=== PATIENT | male | born 1970 | race Caucasian/White ===

== ENCOUNTER 2018-04-23 11:16 | Emergency (ER) | payer OTHER ==
[2018-04-23] MEDS: ONDANSETRON HCL IV 4 MG/2 ML VIAL IV ONE (11:43)
[2018-04-23] MEDS: MAGNESIUM HYDROXIDE/AL HYDROX 30 ML, LIDOCAINE VISC 2% 200 MG PO ONE ×2 (11:43)
--- NOTE | 2018-04-23 11:43 | Emergency Department Record ---
History of Present Illness - General Chief Complaint: Abdominal Pain Stated Complaint: ABD PAIN Time Seen by Provider: 04/23/18 11:22 Source: Patient, RN notes reviewed Mode of Arrival: Wheelchair - History of Present Illness Initial Comments: epigastric abd pain and all four quad pain on palpation more on the LUQ area and No Past abdominal sugery. He was seen at [facility] with acute abdominal xray showed constipation. Onset/Timin -: Days(s) Location: Diffuse Severity: Moderate Severity scale (1-10): 8 Quality: Cramping Consistency: Constant Improves With: Nothing Worsens With: Nothing Associated Symptoms: Nausea - Related Data Allergies Allergy/AdvReac Type Severity Reaction Status Date / Time No Known Allergies Allergy PT UNSURE Verified 04/23/18 11:20 OF REACTION Travel Screening - Travel/Exposure Within Last 30 Days Have you traveled within the last 30 days?: No - Travel/Exposure Within Last Year Have you traveled outside the [place] in the last year?: No - Additonal Travel Details Have you been exposed to anyone with a communicable illness?: No - Travel Symptoms Symptom Screening: None Review of Systems Reviewed: No additional complaints except as noted below Constitutional: Reports: As per HPI. Denies: Chills, Fever, Malaise, Night sweats, Weakness, Weight change Eyes: Reports: As per HPI. Denies: Eye discharge, Eye pain, Photophobia, Vision change ENT: Reports: As per HPI. Denies: Congestion, Dental pain, Ear pain, Epistaxis , Hearing loss, Throat pain Respiratory: Reports: As per HPI. Denies: Cough, Dyspnea, Hemoptysis, Stridor, Wheezes Cardiovascular: Reports: As per HPI. Denies: Arrhythmia, Chest pain, Dyspnea on exertion, Edema, Murmurs, Orthopnea, Palpitations, Paroxysmal nocturnal dyspnea, Rheumatic Fever, Syncope Endocrine: Reports: As per HPI. Denies: Fatigue, Heat or cold intolerance, Polydipsia, Polyuria Gastrointestinal: Reports: As per HPI, Abdominal pain, Vomiting. Denies: Constipation, Diarrhea, Hematemesis, Hematochezia, Melena, Nausea Genitourinary: Reports: As per HPI. Denies: Dysuria, Frequency, Hematuria, Incontinence, Retention, Testicular pain, Testicular mass, Urgency Musculoskeletal: Reports: As per HPI. Denies: Arthralgia, Back pain, Gout, Joint swelling, Myalgia, Neck pain Skin: Reports: As per HPI. Denies: Bruising, Change in color, Change in hair/ nails, Lesions, Pruritus, Rash Neurological: Reports: As per HPI. Denies: Abnormal gait, Confusion, Headache, Numbness, Paresthesias, Seizure, Tingling, Tremors, Vertigo, Weakness Psychiatric: Reports: As per HPI. Denies: Anxiety, Auditory hallucinations, Depression, Homicidal thoughts, Suicidal thoughts, Visual hallucinations Hematological/Lymphatic: Reports: As per HPI. Denies: Anemia, Blood Clots, Easy bleeding, Easy bruising, Swollen glands Past Medical History - SOCIAL HISTORY Smoking Status: Never smoker Alcohol Use: Occasional Drug Use: None - RESPIRATORY Hx Respiratory Disorders: No - CARDIOVASCULAR Hx Cardio Disorders: No - NEURO Hx Neuro Disorders: No - GI Hx GI Disorders: No - Hx Genitourinary Disorders: No - ENDOCRINE Hx Endocrine Disorders: No - MUSCULOSKELETAL Hx Musculoskeletal Disorders: Yes - PSYCH Hx Psych Problems: No - HEMATOLOGY/ONCOLOGY Hx Hematology/Oncology Disorders: No Family Medical History Any Significant Family History?: No Physical Exam - General General Appearance: Alert, Oriented x3, Cooperative, Moderate distress - Head Head exam: Normal inspection - Eye Eye exam: Normal appearance, PERRL Pupils: Normal accommodation - ENT ENT exam: Normal exam, Mucous membranes moist, Normal external ear exam, Normal orophraynx, TM's normal bilaterally Ear exam: Normal external inspection. negative: External canal tenderness Nasal Exam: Normal inspection. negative: Discharge, Sinus tenderness Mouth exam: Normal external inspection, Tongue normal Teeth exam: Normal inspection. negative: Dental caries Throat exam: Normal inspection. negative: Tonsillar erythema, Tonsillar exudate - Neck Neck exam: Normal inspection, Full ROM. negative: Tenderness - Respiratory Respiratory exam: Normal lung sounds bilaterally. negative: Respiratory distress - Cardiovascular Cardiovascular Exam: Regular rate, Normal rhythm, Normal heart sounds - GI/Abdominal GI/Abdominal exam: Soft, Normal bowel sounds, Guarding, Tenderness (epigastric and LUQ pain and guarding in all four quads,) - Rectal Rectal exam: Deferred - exam: Deferred - Extremities Extremities exam: Normal inspection, Full ROM, Normal capillary refill. negative: Tenderness - Back Back exam: Reports: Normal inspection, Full ROM. Denies: Muscle spasm, Rash noted, Tenderness - Neurological Neurological exam: Alert, Normal gait, Oriented X3, Reflexes normal - Psychiatric Psychiatric exam: Normal affect, Normal mood - Skin Skin exam: Dry, Intact, Normal color, Warm Course Vital Signs 04/23/18 11:22 Temperature 98 F Pulse Rate 89 Respiratory 20 Rate Blood Pressure 115/70 Pulse Ox 98 - Reevaluation(s) Reevaluation #1: discussed case with Dr Mills and will transfer to [facility]. 04/23/18 13:08 Reevaluation #2: reevaluated abd and pain is localized to the right lower quad with guarding and rebound 04/23/18 13:13 Medical Decision Making - Data Complexity MDM Data: Labs Ordered and/or Reviewed (WBC 20,000,), X-Ray Ordered and/or Reviewed (acute appendicitis and appendic 13 mm) Disposition Clinical Impression: Abdominal pain Qualifiers: Abdominal location: generalized Qualified Code(s): R10.84 - Generalized abdominal pain Acute appendicitis Qualifiers: Acute appendicitis type: unspecified acute appendicitis type Qualified Code(s) : K35.80 - Unspecified acute appendicitis Disposition: Acute Care Hospital Transfer Condition: (1) Good Forms: Patient Portal Access Time of Disposition: 13:09 Quality - Quality Measures Quality Measures: N/A - Blood Pressure Screening Does Patient Have Any of the Following: No Blood Pressure Classification: Normal BP Reading Systolic Measurement: 115 Diastolic Measurement: 70 Screening for High Blood Pressure: < Normal BP, F/U Not Required > [G8783]
[2018-04-23] MEDS: 0.9 % SODIUM CHLORIDE 1,000 ML BAG IV ONE (11:44)
[2018-04-23] MEDS: HYDROMORPHONE HCL 2 MG/ML VIAL IVP ONE (11:44)
[2018-04-23] MEDS: ERTAPENEM SODIUM 1 G in 0.9 % SODIUM CHLORIDE 100ML 100 ML IVPB ONE (13:18)
--- NOTE | 2018-04-25 08:01 | CT SCAN REPORT ---
EXAM: CT OF THE ABDOMEN AND PELVIS WITHOUT CONTRAST HISTORY: ABDOMINAL PAIN. TECHNIQUE: Sequential axial images were obtained from the diaphragms through the ischiorectal fossa without intravenous or oral contrast administration. FINDINGS: The visualized lung bases appear normal. The nonopacified liver, gallbladder, pancreas and spleen appear normal. The adrenal glands and kidneys appear normal. The urinary bladder appears normal. The appendix is distended with appendicolith. The appendix measures 13 mm. There is minimal surrounding inflammatory change. The small bowel appears normal. There is mild colonic diverticulosis. No evidence of diverticulitis. There are fat containing inguinal hernias. The osseous structures are normal. IMPRESSION: 1. DISTENDED APPENDIX WITH APPENDICOLITH MEASURING 13 MM. FINDINGS SUGGESTIVE OF ACUTE APPENDICITIS. 2. SMALL SLIDING TYPE HIATAL HERNIA. 3. SMALL BILATERAL FAT CONTAINING INGUINAL HERNIAS. JOB NUMBER: [id number] [facility]
== END 2018-04-23 13:56 | disposition short-term general hospital (02) ==
LOC: ER 11:16
DX: K35.80 Unspecified acute appendicitis (principal); R11.0 Nausea; R14.0 Abdominal distension (gaseous)
CPT/HCPCS: 74018; 74176; 80053; 82150; 83690; 85027; 96365; 96375; 99285; J2405; J7030